=== PATIENT | male | born 1990 | race Caucasian/White ===

== ENCOUNTER 2019-09-08 22:06 | Emergency (ER) | payer BC ==
[~2019-09-08] VITALS: Ht 185.4 cm; Wt 104.3 kg
[2019-09-08 23:11] VITALS: BP 118/63
--- NOTE | 2019-09-08 23:11 | NUR ---
Patient discharged to home in stable conditon. Written and verbal after care instructions given. Patient verbalizes understanding of instructions. Patient ambulated with stable gait.
== END 2019-09-08 23:12 | disposition home or self-care (01) ==
LOC: ER 22:06
DX: B34.9 Viral infection, unspecified (principal); R50.9 Fever, unspecified; M79.10 Myalgia, unspecified site
CPT/HCPCS: 87400; A4663